=== PATIENT | male | born 1985 | race Caucasian/White ===

== ENCOUNTER 2020-01-24 14:28 | Emergency (ER) | payer SELFPAY ==
--- NOTE | ~2020-01-24 | CT_ITS ---
EXAMINATION: CT abdomen pelvis w con EXAM DATE: 01/24/2020 16:03 INDICATION: Left buttock pain, abscess. TECHNIQUE: Spiral CT of the abdomen and pelvis was performed following intravenous injection of 100 m L Omnipaque 350. Axial, coronal and sagittal images were reviewed. The dose-length product (DLP) fo r this examination was 1708.24 mGy-cm. The exposure was tailored according to patient size (auto mA exposure control), and iterative reconstruction (ASIR) was used as additional dose reduction techniqu e. There is no prior study for comparison. FINDINGS: There is left buttock sialoadenitis, with region of fluid density surrounded by induration measuring about 1 x 3 cm, appearance most consistent with early abscess which is not fully organized to form circumferential wall. There is a right adrenal gland lesion statistically most likely adenoma measuring 1.5 cm. The liver, spleen, adrenal glands and pancreas are otherwise unremarkable. The g allbladder is contracted but otherwise unremarkable. Portal and splenic veins are patent. Kidneys e nhance symmetrically. There is no hydronephrosis. The prostate is unremarkable. The bladder is un remarkable. There is no retroperitoneal or pelvic lymphadenopathy. There is mild scattered arterio sclerotic disease. The appendix is normal. The stomach and small bowel are unremarkable. There is expected amount of c olonic stool. No free intraperitoneal gas. The heart is normal in size. There are no pericardial or pleural effusions. The lung bases are unremarkable. The bones are unremarkable. IMPRESSION: 1. Left buttock cheek cellulitis, phlegmon and early abscess. Reviewed, dictated and finalized at location A.
[2020-01-24 14:43] VITALS: BP 133/73; PULSE 74; RESP 13; TEMP 36.4; O2SAT 100
[2020-01-24 15:22] LABS: Hematocrit 50.3 % (40.0-54.0); Hemoglobin 16.8 g/dL (14.0-18.0); Mean Corpuscular HGB Conc 33.4 g/dL (32.0-36.0); Mean Corpuscular Volume 83.7 fL (78.0-102.0); Mean Platelet Volume 10.9 fl (8.7-11.0); Platelet Count Result 196 K/mm3 (150-420); Red Blood Count 6.01 M/mm3 (4.70-6.10); Red Cell Distribution Width 14.6 % (11.6-14.4)
--- NOTE | 2020-01-24 15:27 | ED.SKABFB ---
HPI - Skin/Abscess/Foreign Bdy General Chief complaint: Skin/Abscess/Foreign Body Stated complaint: large bumps on left buttocks Time Seen by Provider: 01/24/20 15:05 Source: patient Mode of arrival: ambulatory Limitations: no limitations History of Present Illness HPI narrative: Jameson is a 34-year-old male patient. He presents ambulatory to the emergency room. He is pain and swelling to the left gluteal area. He has had an abscess in this area in the past and had incision and drainage. It appears he has a deep ischial rectal/ perirectal abscess to this area. This area is very tender. He had fever up to 102.4? F yesterday. Today his temperature in the emergency room his 97.6? F. . complaint: other (Jameson has redness and swelling to the left perirectal area it appears he has a deep ischio- rectal abscess.) Onset (ago): day(s) ( Two days) Location: buttocks Severity: severe Severity scale (1-10): 9 Quality: sharp Pain Consistency: constant Relieving factors: none Exacerbating factors: palpation and movement Context: other ( See HPI narrative) Associated symptoms: fever Treatments prior to arrival: none Related Data Home Medications Medication Instructions Recorded Confirmed No Home Medications 01/24/20 01/24/20 Allergies Allergy/AdvReac Type Severity Reaction Status Date / Time No Known Allergies Allergy Verified 01/24/20 14:42 Review of Systems Review of Systems: All systems reviewed & are unremarkable except as noted in HPI and below Constitutional: Constitutional: Reports as per HPI, Reports no additional constitutional complaints, Denies chills and Reports fever(s) Eyes: Eyes: Reports as per HPI, Reports no additional eye complaints and Denies change in vision ENT: Reports system reviewed and no additional complaints, except as documented, Denies vertigo, Denies dizziness and Denies sore throat Cardiovascular: Cardiovascular: Reports as per HPI, Reports no additional cardiovascular complaints, Denies chest pain and Denies radiating jaw, neck or arm pain Respiratory: Respiratory: Reports as per HPI, Reports no additional respiratory complaints, Denies cough and Denies dyspnea Gastrointestinal: Gastrointestinal: Reports as per HPI, Reports no additional gastrointestinal complaints, Denies abdominal pain, Denies diarrhea, Denies nausea and Denies vomiting Genitourinary: Genitourinary: Reports no additional male genitourinary complaints, Denies hematuria and Denies dysuria Musculoskeletal: Musculoskeletal: Reports no additional musculoskeletal complaints and Denies back pain Integumentary/Breasts: Skin/Breast: Reports system reviewed and no additional complaints, except as docu and Reports erythema Comments: swelling and redness to the left gluteal area / perirectal area Neurologic: Reports system reviewed and no additional complaints, except as documented, Denies vertigo, Denies syncope, Denies focal weakness, Denies numbness and Denies weakness Psychiatric: Psychiatric: Reports no additional psychiatric complaints, Reports as per HPI, Denies anxiety and Denies depression Hematologic/Lymphatic: Hematologic/Lymphatic: Reports no additional hematologic/lymphatic complaints, Denies easy bleeding and Denies easy bruising Allergic/Immunologic: Allergic/Immunologic: Reports no additional allergic/immunologic complaints [facility] Past Medical History Medical History (Updated 01/24/20 @ 21:05 by Alex Hayes MD) Forearm fracture Perirectal abscess Radius fracture Social History Social History (Updated 01/24/20 @ 15:38 by Alex Hayes MD) Smoking packs per day: 1.5 Smoking cigarettes per day: 30.0 Years smoked: 16 Smoking pack-years: 24.00 Smoking status: Current every day smoker Substance use: never Exam Const: General: no acute distress ( moderate distress); No diaphoretic Nutritional Appearance: well nourished Limitations: No no limitations HENMT: Ears: TM's
[2020-01-24 15:28] LABS: White Blood Count 22.2 K/mm3 (4.8-10.8)
[2020-01-24 15:40] LABS: Alanine Aminotransferase 35 U/L (16-63); Albumin Level 3.3 g/dL (3.4-5.0); Alkaline Phosphatase 92 U/L (46-116); Anion Gap 15.1 mmol/L (7-16); Aspartate Amino Transferase 30 U/L (15-37); Bilirubin,Total 0.9 mg/dL (0.00-1.00); Blood Urea Nitrogen 11 mg/dL (7-18); Calcium 8.7 mg/dL (8.5-10.1); Carbon Dioxide 25 mmol/L (21-32); Chloride 105 mmol/L (98-108); Estimated CRCL calculation 114 ml/min; Estimated Glomerular Filt Rate > 60; Glucose 93 mg/dL (70-99); Osmolality Calculated 291 mOsm/kg (285-295); Potassium 4.1 mmol/L (3.5-5.1); Sodium 141 mmol/L (136-145); Total Protein 7.1 g/dL (6.4-8.2)
--- NOTE | 2020-01-24 15:44 | PC.NURSE ---
PT STATED HE IS GOING OUTSIDE WHILE WAITING FOR HIS CT SCAN. WHEN PT RETURNED HE STATED HE IS GOING DOWN TO THE Phase III DevelopmentING MACHINES. RN REQUESTED THAT PT RETURN TO ROOM FOR TREATMENT.
[2020-01-24 15:49] LABS: Total Cells Counted 100
[2020-01-24 15:50] LABS: Band Neutrophils Percent 0 % (0-6); Basophils Percent Manual 0 % (0-1); Eosinophils Absolute Manual 0.22 K/mm3 (0.02-0.5); Eosinophils Percent Manual 1 % (1-6); Lymphocytes Absolute Manual 2.44 K/mm3 (1.1-4.5); Lymphocytes Percent Manual 11 % (18-44); Monocytes Absolute Manual 1.11 K/mm3 (0.1-0.90); Monocytes Percent Manual 5 % (3-9); Neutrophils Absolute Manual 18.42 K/mm3 (1.3-6.7); Neutrophils Percent Manual 83 % (46-73); Platelet Estimate Adequate (Adequate)
--- NOTE | 2020-01-24 15:52 | PC.NURSE ---
PT TAKEN TO RADIOLOGY FOR CT SCAN. PT REQUESTED TO AMBULATE
[2020-01-24 15:56] LABS: Lactic Acid 1.3 mmol/L (0.4-2.0)
[2020-01-24 17:29] LABS: Erythrocyte Sedimentation Rate 24 mm/hr (0-15)
--- NOTE | 2020-01-24 18:04 | PC.NURSE ---
ERP REQUESTING GENERAL SURGERY CONSULT. ANTONIO MARINOGARMENT SEWING MACHINE OPERATOR AT [facility] CONTACTED WHO GAVE RN THE EXCHANGE PHONE NUMBER FOR THE NITRIC ACID CONCENTRATOR OPERATOR DR JOHN DAS. EXCHANGE CONTACTED. AWAITING CALL BACK.
--- NOTE | 2020-01-24 18:11 | PC.NURSE ---
DR. LOPEZ CONTACTED ED AT THIS TIME. CALL TRANSFERRED TO ERP
--- NOTE | 2020-01-24 19:08 | PC.NURSE ---
BRIANNA Marcano accepting for Dr. Lynn physician at [facility]. Awaiting bed placement at this time.
--- NOTE | 2020-01-24 19:48 | PC.NURSE ---
TELEPHONE REPORT PROVIDED TO ZAIN CORTEZ. PT TO BE TAKEN UP TO ROOM 208 ER HOLD WHILE WAITING FOR ROOM AT [facility]
--- NOTE | 2020-01-24 19:52 | PC.NURSE ---
REPORT PROVIDED TO NANCY CORTEZ, ZAIN RN UNAVAILABLE
--- NOTE | 2020-01-24 20:00 | PC.NURSE ---
Patient ambulated to room 208. A&Ox3. VS. Resting in bed with warm blankets.
[2020-01-24 20:05] VITALS: BP 137/64; PULSE 90; RESP 20; TEMP 37.2; O2SAT 99
--- NOTE | 2020-01-24 20:20 | PC.NURSE ---
Regional Climate Change Analyst notified bed available at [facility] room #348. Report called to Corrine.
--- NOTE | 2020-01-24 21:02 | PC.NURSE ---
Patient transported off of floor via stretcher. [place] [facility]. To [facility] #348
== END 2020-01-24 21:05 | disposition short-term general hospital (02) ==
PROVIDERS: Emergency Provider Surgery
DX: L03.317 Cellulitis of buttock (principal); L02.31 Cutaneous abscess of buttock
CPT/HCPCS: 36415; 74177; 80053; 83605; 85025; 85652; 96365; 96367; 96375; 99285; A9270; J0696; J1885; J3370; Q9965

== ENCOUNTER 2020-01-24 21:45 | Inpatient (IN) | payer SELFPAY ==
[2020-01-24 22:00] VITALS: BP 143/69; PULSE 88; RESP 16; TEMP 37.1; O2SAT 98
--- NOTE | 2020-01-24 22:08 | ADMGEN ---
This patient, Jameson Tom, was admitted to Medical Room 348-. Patient/family oriented to hospital policies and general routines including ID bracelet, bed and alarms, visiting hours, pain management, procedures, bathroom and other care routines, personal items, smoking policy, room service/diet, and visiting hours. Valuables list has been completed. Information on how to activate the Rapid Response Team has been discussed. Patient/Family are encouraged to report perceived risks to care and to ask questions if they do not understand what they are told or what they should do.
[2020-01-24 22:18] VITALS: BMI 36.1
[2020-01-25] VITALS (13 sets, daily range): BP systolic 108–135; BP diastolic 50–73; PULSE 71–88; RESP 14–20; TEMP 36.2–37.9; O2SAT 90–99
[2020-01-25] MEDS: NICOTINE (*PBKC) 21 MG PATCH 1 PATCH TRANSDERM (00:14)
[2020-01-25] MEDS: DEXTROSE 5%/0.45% SOD CHL 1,000 ML 100 ML IV CONT (00:30)
[2020-01-25] MEDS: ACETAMINOPHEN 325 MG TABLET 650 MG PO (04:51)
[2020-01-25 05:40] LABS: Basophils Absolute Auto 0.1 K/mm3 (0.0-0.1); Basophils Percent Auto 0.3 % (0.2-1.2); Eosinophils Absolute Auto 0.2 K/mm3 (0-0.3); Eosinophils Percent Auto 0.9 % (0-4.4); Hematocrit 49.7 % (42.0-52.0); Hemoglobin 16.2 g/dL (14.0-18.0); Immature Granulocyte Absolute 0.12 K/mm3 (0.00-0.031); Immature Granulocyte Percent A 0.7 % (0-0.5); Lymphocytes Absolute Auto 2.12 K/mm3 (0.9-3.2); Lymphocytes Percent Auto 11.5 % (18.3-44.2); Mean Corpuscular HGB Conc 32.6 g/dl (32-36); Mean Corpuscular Hemoglobin 27.4 pg (26-34); Mean Platelet Volume 11.1 fl (7.4-10.4); Monocytes Absolute Auto 1.9 K/mm3 (0.1-0.6); Monocytes Percent Auto 10.3 % (2.6-8.5); Neutrophils Percent Auto 76.3 % (45.5-73.1); Platelet Count Result 227 k/mm3 (150-375); Red Blood Count 5.92 M/mm3 (4.6-6.20); Red Cell Distribution Width 14.7 % (11.5-14.5); White Blood Count 18.4 K/mm3 (4.5-10.0)
[2020-01-25 05:58] LABS: Blood Urea Nitrogen 9 mg/dL (9-20); Calcium 8.5 mg/dL (8.4-10.2); Carbon Dioxide 26 mmol/L (22-30); Chloride 105 mmol/L (98-107); Estimated CRCL calculation 127 ml/min; Estimated Glomerular Filt Rate > 60; Glucose 88 mg/dL (75-110); Potassium 3.7 mmol/L (3.4-5.0); Sodium 135 mmol/L (137-145)
--- NOTE | 2020-01-25 08:17 | PM.CNGS ---
Assessment and Plan Assessment and plan (1) Abscess of skin or subcutaneous tissue: Qualifiers: Site of cutaneous abscess: buttock Qualified Code(s): L02.31 - Cutaneous abscess of buttock Code(s): L02.91 - Cutaneous abscess, unspecified Status: Acute Assessment and Plan: Patient has a large left buttock/perirectal abscess that is extremely tender on exam. I have reviewed the CT and discussed treatment options with patient. I have recommended urgent I&D of left buttock abscess to be done under anesthesia in the OR. Discussed procedure, risks, benefits, and alternatives. Questions answered. He has already been started on IV antibiotics. (2) Cellulitis: Qualifiers: Site of cellulitis: buttock Qualified Code(s): L03.317 - Cellulitis of buttock Code(s): L03.90 - Cellulitis, unspecified Status: Acute History of Present Illness Consult details Consult date: 01/25/20 Reason for consult: other (left buttock abscess) Narrative: 34 yo man presented to the ED in [place] with left buttock pain and swelling. This began about 3-4 days ago. He was also experiencing fevers. He had one episode like this in the past but not this bad. He had a CT and labs done in [place]. He was then transferred to [place] for treatment. Review of Systems Review of Systems: All systems reviewed & are unremarkable except as noted in HPI and below Eyes: Eyes: Denies change in vision ENT: Denies hearing loss, Denies neck pain and Denies sore throat Cardiovascular: Cardiovascular: Denies chest pain and Denies dyspnea Respiratory: Respiratory: Denies cough, Denies dyspnea and Denies wheezing Genitourinary: Genitourinary: Denies hematuria and Denies dysuria Musculoskeletal: Musculoskeletal: Denies arthralgias, Denies joint swelling and Denies neck pain Integumentary/Breasts: Skin/Breast: Reports furuncle Allergic/Immunologic: Allergic/Immunologic: Denies wheezing PMFSH Past Medical History Medical History Forearm fracture Perirectal abscess Radius fracture Family History Family History Father Cancer Acute myocardial infarction Social History Social History Smoking packs per day: 1.5 Smoking cigarettes per day: 30.0 Years smoked: 16 Smoking pack-years: 24.00 Smoking status: Current every day smoker Tobacco type: cigarettes Second hand tobacco smoke exposure: Yes Alcohol intake: current Drinks per week: 1 Substance use: former Substance use type: marijuana Gender identity (if verbalized by the patient): Male Spiritual care concerns: No Agree to blood products: No Meds Home Medications and Allergies Home Medications Medication Instructions Recorded Confirmed Type No Home Medications 01/24/20 01/24/20 History Allergies Allergy/AdvReac Type Severity Reaction Status Date / Time No Known Allergies Allergy Verified 01/25/20 08:16 Vital Signs Vital Signs - 24 hr 01/24/20 22:00 01/25/20 04:46 01/25/20 04:51 Temperature 37.1 C 37.9 C H 37.9 C H Pulse Rate 88 88 Respiratory Rate 16 16 Blood Pressure 143/69 H 135/50 L Pulse Oximetry 98 99 01/25/20 05:51 Temperature 36.9 C Pulse Rate Respiratory Rate Blood Pressure Pulse Oximetry Exam Const: General: alert; No acute distress Orientation/consciousness: patient oriented x3 Limitations: no limitations HENMT: Head: normocephalic and atraumatic Ears: hearing grossly normal bilaterally General nose exam: Normal external nose present and Normal nares present Mouth: Yes Normal oral and palatal mucosa present and Yes moist mucous membranes Eyes: General: appearance normal, both eyes and all related structures Conjunctivae: conjunctivae normal Sclera: sclerae normal Pupils: Equal, round and react
--- NOTE | 2020-01-25 08:25 | WPDANESEPPF ---
Anes - Initial Pre Proc Eval Procedure: Operation Date: 01/25/20 08:30 Proposed Procedures p Incision and Drainage Left Buttock Abscess - Ángel Teague DO Date/Time: 01/25/20 08:25 Surgeon: Umu Rodriguez DO Pre Op Diagnosis: sepsis buttock cellulitis Patient Data Age: 34 Gender: M Height: 6 ft 1 in Weight: 124.2 kg Last Vital Signs Temp 97.8 F 01/25/20 07:55 Pulse 74 01/25/20 07:55 Resp 20 01/25/20 07:55 BP 130/69 01/25/20 07:55 Pulse Ox 97 01/25/20 07:55 Allergies Allergy/AdvReac Type Severity Reaction Status Date / Time No Known Allergies Allergy Verified 01/25/20 08:16 Home Medications Medication Instructions Recorded Confirmed Type No Home Medications 01/24/20 01/24/20 History Laboratory Tests 01/25/20 01/25/20 05:11 05:11 WBC 18.4 K/mm3 H K/mm3 (4.5-10.0) RBC 5.92 M/mm3 M/mm3 (4.6-6.20) Hgb 16.2 g/dL g/dL (14.0-18.0) Hct 49.7 % % (42.0-52.0) MCV 84.0 fl fl (80-100) MCH 27.4 pg pg (26-34) MCHC 32.6 g/dl g/dl (32-36) RDW 14.7 % H % (11.5-14.5) Plt Count 227 k/mm3 k/mm3 (150-375) MPV 11.1 fl H fl (7.4-10.4) Immature Gran % (Auto) 0.7 % H % (0-0.5) Neut % (Auto) 76.3 % H % (45.5-73.1) Lymph % (Auto) 11.5 % L % (18.3-44.2) [place] % (Auto) 10.3 % H % (2.6-8.5) Eos % (Auto) 0.9 % % (0-4.4) Baso % (Auto) 0.3 % % (0.2-1.2) Lymph # (Auto) 2.12 K/mm3 K/mm3 (0.9-3.2) [place] # (Auto) 1.9 K/mm3 H K/mm3 (0.1-0.6) Eos # (Auto) 0.2 K/mm3 K/mm3 (0-0.3) Baso # (Auto) 0.1 K/mm3 K/mm3 (0.0-0.1) Abs Immat Gran (auto) 0.12 K/mm3 H K/mm3 (0.00-0.031) Absolute Neuts (auto) 14.0 K/mm3 H K/mm3 (1.3-6.7) Absolute Nucleated RBC 0.0 K/mm3 K/mm3 (0.0-0.012) Nucleated RBC % 0.0 % % (0.0-0.2) Sodium 135 mmol/L L mmol/L (137-145) Potassium 3.7 mmol/L mmol/L (3.4-5.0) Chloride 105 mmol/L mmol/L (98-107) Carbon Dioxide 26 mmol/L mmol/L (22-30) BUN 9 mg/dL mg/dL (9-20) Creatinine 1.00 mg/dL mg/dL (0.7-1.3) Estim Creat Clear Calc 127 ml/min ml/min Estimated GFR > 60 (59 - ) Glucose 88 mg/dL mg/dL (75-110) Calcium 8.5 mg/dL mg/dL (8.4-10.2) Patient hx anesthesia problems: none Family hx anesthesia problems: none PMFSH Past Medical History Medical History Forearm fracture Perirectal abscess Radius fracture Family History Family History Father Cancer Acute myocardial infarction Social History Social History Smoking packs per day: 1.5 Smoking cigarettes per day: 30.0 Years smoked: 16 Smoking pack-years: 24.00 Smoking status: Current every day smoker Tobacco type: cigarettes Second hand tobacco smoke exposure: Yes Alcohol intake: current Drinks per week: 1 Substance use: former Substance use type: marijuana Gender identity (if verbalized by the patient): Male Spiritual care concerns: No Agree to blood products: No Anes - Eval Final PreProcedure Day of Procedure 01/25/20 08:25 Patient weight: obese Heart: regular rate and rhythm Lungs: clear to auscultation Airway: Mallampati scale class III Neurological: alert and oriented Last oral intake: >/= 8 hours ASA classification: II Emergent: no Anesthetic plan: proceed Anesthesia type and monitoring: general LMA and standard monitoring Informed Consent: The patient's anesthetic plan and its attendant risks and benefits were discussed with the patient/family/POA. Questions were solicited and answers provided to the satisfaction of the patient/family/POA.
[2020-01-25] MEDS: LACTATED RINGERS 1,000 ML 30 ML IV CONT (08:30)
[2020-01-25] MEDS: BUPIVACAINE/EPINEPHRINE 0.5% 30 ML VIAL 10 ML INFILTRATE (09:06)
[2020-01-25] MEDS: IBUPROFEN 600 MG TABLET PO (11:14)
--- NOTE | 2020-01-25 12:41 | PM.PROC ---
Procedure Note - Detailed Date of procedure: 01/25/20 Pre-op diagnosis: sepsis buttock cellulitis Post-op diagnosis: other (Perirectal abscess) Procedure performed: Incision and drainage of left perirectal abscess Description of procedure: Procedure as well as risks, benefits, and alternatives were discussed with the patient. Written consent was obtained and placed in chart prior to procedure. Patient was brought back to surgical suite. He was placed supine on operating table. Time-out was done to confirm patient and procedure. He was then placed under general anesthetic with LMA by the anesthesia department. He was then re[facility] and his perirectal and buttock region was prepped and draped in sterile fashion using Betadine prep. 0.5% bupivacaine with epinephrine was infiltrated over locally over the area of fluctuance in the left perirectal region. A 4 cm incision was then made over the area of fluctuance using a 15 blade scalpel. Cultures were taken for aerobic and anaerobic culture and sensitivity. The cavity was then thoroughly inspected and purulent fluid was drained. Loculations were broken up. The abscess cavity was then irrigated with sterile saline. No further purulence fluid was noted. The wound was then packed with 1 in iodoform gauze. 4 x 4 gauze, ABD pad, and mesh underwear were then applied. The patient was then awakened from anesthesia and transferred to recovery. Anesthesia: GLMA and local (0.5% bupivicaine with epi) Surgeon: Ángel Teague DO Estimated blood loss (mL): 5 Packing: Yes (1 iodoform gauze) Complications: No immediate complications Condition: stable Disposition: floor Findings: This is a 34-year-old man who presented with swelling, redness, and drainage from his left perirectal region. He had noticed increasing swelling over the past 2-3 days. He was also experiencing fevers. He presented to the emergency department in [place] and was then transferred to [facility] for further treatment. He had a CT of his abdomen and pelvis done in [place] which showed evidence of a developing abscess in the left buttock region. He also had an elevated white blood count. He was started on broad-spectrum IV antibiotics and decision was made to proceed with incision and drainage of left perirectal abscess. Incision and drainage of left perirectal abscess was performed. Patient had a large area of fluctuance along the left lateral perirectal region. There were 2 small openings with purulence drainage along this area of fluctuance. An incision was made over this area to adequately drain out this fluid. The abscess cavity measured about 6 cm and was along the left lateral perirectal region. An incision was made long enough to adequately drain the entire abscess. Cultures were taken. After irrigating out the abscess cavity, it was then packed with 1 in iodoform gauze.
--- NOTE | 2020-01-25 16:49 | PM.IMHP ---
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 The ER physician contacted the surgeon the patient was transferred to the [facility] any had I and D done on 01/23, this morning patient is feeling better pain is still persisting but denies any fever or chills he was started on imipenem and vancomycin, his and mother are present in the room Review of Systems Review of Systems: All systems reviewed & are unremarkable except as noted in HPI and below PMFSH Past Medical History Medical History Forearm fracture Perirectal abscess Radius fracture Family History Family History Father Cancer Acute myocardial infarction Social History Social History Smoking packs per day: 1.5 Smoking cigarettes per day: 30.0 Years smoked: 16 Smoking pack-years: 24.00 Smoking status: Current every day smoker Tobacco type: cigarettes Second hand tobacco smoke exposure: Yes Alcohol intake: current Drinks per week: 1 Substance use: former Substance use type: marijuana Gender identity (if verbalized by the patient): Male Spiritual care concerns: No Agree to blood products: No Meds Home Medications and Allergies Home Medications Medication Instructions Recorded Confirmed Type No Home Medications 01/24/20 01/24/20 History Allergies Allergy/AdvReac Type Severity Reaction Status Date / Time No Known Allergies Allergy Verified 01/25/20 08:16 Vital Signs Vital Signs - 24 hr 01/24/20 22:00 01/25/20 04:46 01/25/20 04:51 Temperature 98.8 F 100.2 F H 100.2 F H Pulse Rate 88 88 Respiratory Rate 16 16 Blood Pressure 143/69 H 135/50 L Pulse Oximetry 98 99 01/25/20 05:51 01/25/20 07:55 01/25/20 09:02 Temperature 98.4 F 97.8 F 97.5 F L Pulse Rate 74 81 Respiratory Rate 20 18 Blood Pressure 130/69 111/64 Pulse Oximetry 97 93 01/25/20 09:15 01/25/20 09:30 01/25/20 09:45 Temperature Pulse Rate 78 83 79 Respiratory Rate 18 19 16 Blood Pressure 114/56 L 127/68 125/68 Pulse Oximetry 94 94 92 01/25/20 10:05 01/25/20 10:20 01/25/20 10:50 Temperature 98.1 F 97.6 F 98.1 F Pulse Rate 80 82 81 Respiratory Rate 16 16 16 Blood Pressure 119/65 124/73 130/67 Pulse Oximetry 91 90 94 01/25/20 12:11 01/25/20 16:06 Temperature 97.2 F L 97.5 F L Pulse Rate 71 82 Respiratory Rate 14 18 Blood Pressure 108/64 130/62 Pulse Oximetry 92 95 Exam Const: General: comfortable and no acute distress HENMT: General nose exam: Normal nares present Mouth: Yes moist mucous membranes Eyes: General: appearance normal, both eyes and all related structures Sclera: sclerae normal Neck: Neck: supple Resp: Effort & Inspection: normal respiratory effort Auscultation: clear to auscultation bilaterally Cardio: Rate: regular rate Rhythm: regular rhythm GI: GI Palp: Yes Soft to palpation Skin: General skin exam: normal color and no rashes or lesions noted Neuro: Speech: normal speech Sensory Exam: normal sensation Extrem: General: normal to inspection Psych: Affect: Anxious affect present H&P: Results Labs Labs: Short CBC 01/25/20 Range/Units 05:11 WBC 18.4 H (4.5-10.0) K/mm3 Hgb 16.2 (14.0-18.0) g/dL Hct 49.7 (42.0-52.0) % Plt Count 227 (150-375) k/mm3 BMP 01/25/20 05:11 Sodium 135 L Potassium 3.7 Chloride 105 Carbon Dioxide 26 BUN 9 Creatinine 1.00 Glucose 88 Calcium 8.5 Assessment and Plan Assessment and plan (1) Cellulitis:
--- NOTE | 2020-01-25 18:32 | PM.DS ---
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 The ER physician contacted the surgeon the patient was transferred to the [facility] any had I and D done on 01/23, this morning patient is feeling better pain is still persisting but denies any fever or chills he was started on imipenem and vancomycin, his and mother are present in the room (2) Abscess of skin or subcutaneous tissue: Qualifiers: Site of cutaneous abscess: buttock Qualified Code(s): L02.31 - Cutaneous abscess of buttock Code(s): L02.91 - Cutaneous abscess, unspecified Status: Inactive Assessment and Plan: Plan is above DS: Summary Hospital Course Reason for hospitalization: Jameson Tom is a 34 year old male [employer] he has had history of abscess and I and D patient initially went to the [facility] and was found to an abscess in the left buttock CT scan of the pelvis showed Left buttock cheek cellulitis, phlegmon and early abscess. 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 The ER physician contacted the surgeon the patient was transferred to the [facility] any had I and D done on 01/23, this morning patient is feeling better pain is still persisting but denies any fever or chills he was started on imipenem and vancomycin, his and mother are present in the room. Patient was seen by his surgeon patient is clinically stable and can be discharged home today on oral antibiotic, his and mother will help him with dressing changes Status at Discharge Functional status at discharge: independent ambulation Overall status at discharge: patient is back to baseline Time Spent with Patient Time attestation: Total time spent providing and/or coordinating discharge services: Patient was seen and examined at the time of the discharge Condition at discharge is stable Code status: Full code. Time spent preparing discharge summary, discharge medications, discussing discharge planning with welfare case worker and patient is 35 minutes. Time spent: Greater than 30 minutes Exam Const: General: comfortable and no acute distress HENMT: General nose exam: Normal nares present Mouth: Yes moist mucous membranes Eyes: General: appearance normal, both eyes and all related structures Sclera: sclerae normal Neck: Neck: supple Resp: Effort & Inspection: normal respiratory effort Auscultation: clear to auscultation bilaterally Cardio: Rate: regular rate Rhythm: regular rhythm Skin: General skin exam: normal color and no rashes or lesions noted Neuro: Speech: normal speech Sensory Exam: normal sensation Extrem: General: normal to inspection Psych: Affect: Anxious affect present DS: Data Data Completed and Pending Labs on day of discharge: Labs from last 24 hours 01/25/20 01/25/20 05:11
== END 2020-01-25 19:25 | disposition home or self-care (01) | DRG 951 ==
PROVIDERS: Physician Assistant; Surgery; Admitting Provider Internal Medicine; Referring Provider Internal Medicine; Visit Provider Family Medicine
PROC: 0D9P0ZZ Drainage of Rectum, Open Approach (ICD-10-PCS; CPT 46040; principal; 2020-01-25 08:30)
DX: L02.31 Cutaneous abscess of buttock (principal); K61.1 Rectal abscess; L03.317 Cellulitis of buttock; F17.210 Nicotine dependence, cigarettes, uncomplicated; E66.9 Obesity, unspecified; Z68.36 Body mass index [BMI] 36.0-36.9, adult
CPT/HCPCS: 36415; 80048; 85025; 87070; 87075; 87076; 87205; A9270; J0743; J1170; J2250; J2405; J2704; J3010; J3370; J7120

== ENCOUNTER 2021-08-01 06:16 | Emergency (ER) | payer BC, SELFPAY ==
--- NOTE | ~2021-08-01 | XR_ITS ---
EXAMINATION: XR lumbar spine 2-3V DATE: 08/01/2021 07:11 INDICATION: Back pain after jumping out of a truck TECHNIQUE: Anteroposterior and lateral views of the lumbar spine, and cone-down lateral view of the l umbosacral junction were obtained. COMPARISON: None. FINDINGS: Chronic straightening of the normal lumbar lordosis. Limited is otherwise normal. Vertebral body heig hts are normal. Mild disc height loss with mild degenerative endplate changes at L3-L4 and L4-L5 and at T10-T11 through T12-L1. Lumbar facet and bilateral sacroiliac joints are normal. IMPRESSION: 1. Mild lower lumbar lower thoracic spondylosis. No evident acute osseous abnormality. Reviewed, dictated and finalized at location A. IMPRESSION: 1. Mild lower lumbar lower thoracic spondylosis. No evident acute osseous abnor mality.
[2021-08-01 06:20] VITALS: BP 163/86; PULSE 77; RESP 16; TEMP 36.2; O2SAT 97
--- NOTE | 2021-08-01 06:39 | ED.BACK ---
HPI - Back Pain/Injury General Chief Complaint: Back Pain/Injury <Bharath Navarro MD - Last Filed: 08/01/21 06:55> Stated Complaint: Back pain <Bharath Navarro MD - Last Filed: 08/01/21 06:55> Time Seen by Provider: 08/01/21 06:39 <Bharath Navarro MD - Last Filed: 08/01/21 06:55> Source: patient <Bharath Navarro MD - Last Filed: 08/01/21 06:55> Mode of arrival: ambulatory <Bharath Navarro MD - Last Filed: 08/01/21 06:55> Limitations: no limitations <Bharath Navarro MD - Last Filed: 08/01/21 06:55> History of Present Illness HPI Narrative: 36-year-old man with a history of low back pain comes in today complaining of worsening low back pain that started 5 days ago after he jumped out his truck trailer. States he has pain in his back with extension of his right knee but he denies urine symptoms, numbness, tingling, weakness or prior back surgery. He has been taking [id number] anti-inflammatories. <Bharath Navarro MD - Last Filed: 08/01/21 06:55> MD elicited complaint: back injury <Bharath Navarro MD - Last Filed: 08/01/21 06:55> Pertinent past history: prior back pain and recent trauma <Bharath Navarro MD - Last Filed: 08/01/21 06:55> Onset (ago): day(s) (5) <Bharath Navarro MD - Last Filed: 08/01/21 06:55> Timing: progressively worsening <Bharath Navarro MD - Last Filed: 08/01/21 06:55> Severity: severe <Bharath Navarro MD - Last Filed: 08/01/21 06:55> Similar Symptoms Previously: Yes <Bharath Navarro MD - Last Filed: 08/01/21 06:55> Quality: sharp and aching <Bharath Navarro MD - Last Filed: 08/01/21 06:55> Location: lumbar spine <Bharath Navarro MD - Last Filed: 08/01/21 06:55> Radiation: none <Bharath Navarro MD - Last Filed: 08/01/21 06:55> Exacerbating factors: movement and walking <Bharath Navarro MD - Last Filed: 08/01/21 06:55> Relieving factors: none <Bharath Navarro MD - Last Filed: 08/01/21 06:55> Context: fall <Bharath Navarro MD - Last Filed: 08/01/21 06:55> Associated symptoms: denies other symptoms <Bharath Navarro MD - Last Filed: 08/01/21 06:55> Treatments prior to arrival: NSAIDS <Bharath Navarro MD - Last Filed: 08/01/21 06:55> Work related injury: Yes <Bharath Navarro MD - Last Filed: 08/01/21 06:55> Related Data Allergies/Adverse Reactions: Allergies Allergy/AdvReac Type Severity Reaction Status Date / Time No Known Allergies Allergy Verified 01/25/20 08:16 <Bharath Navarro MD - Last Filed: 08/01/21 06:55> Review of Systems Constitutional: Constitutional: Denies chills and Denies fever(s) <Bharath Navarro MD - Last Filed: 08/01/21 06:55> ENT: Denies nasal congestion and Denies sore throat <Bharath Navarro MD - Last Filed: 08/01/21 06:55> Cardiovascular: Cardiovascular: Denies chest pain <Bharath Navarro MD - Last Filed: 08/01/21 06:55> Respiratory: Respiratory: Denies cough and Denies dyspnea <Bharath Navarro MD - Last Filed: 08/01/21 06:55> Gastrointestinal: Gastrointestinal: Denies abdominal pain, Denies nausea and Denies vomiting <Bharath Navarro MD - Last Filed: 08/01/21 06:55> Genitourinary: Genitourinary: Denies dysuria and Denies urinary frequency <Bharath Navarro MD - Last Filed: 08/01/21 06:55> Musculoskeletal: Musculoskeletal: Reports back pain, Denies arthralgias and Denies joint swelling <Bharath Navarro MD - Last Filed: 08/01/21 06:55> Integumentary/Breasts: Skin/Breast: Denies pruritus, Denies erythema and Denies rash <Bharath Navarro MD - Last Filed: 08/01/21 06:55> Neurologic: Denies vertigo, Denies dizziness, Denies syncope, Denies focal weakness and Denies numbness <Bharath Navarro MD - Last Filed: 08/01/21 06:55> [facility] Past Medical History Medical History: Medical History (Updated 08/01/21 @ 06:51 by Bharath
[2021-08-01] MEDS: HYDROcodone/acetaminophen (*CRX) 5-325 MG TABLET 1 TAB PO (06:54)
[2021-08-01] MEDS: predniSONE 20 MG TABLET 40 MG PO (06:54)
[2021-08-01 08:13] VITALS: BP 150/85; PULSE 71; RESP 20; TEMP 36.2; O2SAT 97
== END 2021-08-01 08:17 | disposition home or self-care (01) ==
PROVIDERS: Emergency Provider Emergency Medicine
DX: S39.012A Strain of muscle, fascia and tendon of lower back, initial encounter (principal)
CPT/HCPCS: 72100; 99283; A9270; J7512

== ENCOUNTER 2022-11-24 14:40 | Emergency (ER) | payer OTHER, SELFPAY ==
--- NOTE | ~2022-11-24 | CT_ITS ---
EXAMINATION: CT brain wo con DATE: 11/24/2022 15:33 INDICATION: dizziness . TECHNIQUE: Computed tomography (CT) of the head was performed without intravenous contrast. The mA wa s adjusted according to patient size. Iterative reconstruction technique was employed. The dose-lengt h product was 681.00 mGy-cm. COMPARISON: 02/01/2018. FINDINGS: No acute intracranial hemorrhage or extra-axial fluid collection. No hydrocephalus, mass, or herniation. No acute ischemic infarct. Unremarkable dural venous sinus attenuation. No acute osseous abnormality. Mild left maxillary and middle ethmoid air cell mucosal thickening, the remaining aerated spaces are clear. Cystic collection in the posterior fossa, stable, without overt mass effect, likely representi ng a benign congenital or developmental entity, for example arachnoid cyst. IMPRESSION: No acute intracranial process. Reviewed, dictated and finalized at location K. AGE PROGRAM DIRECTOR
[2022-11-24 14:46] VITALS: BP 131/86; PULSE 81; RESP 16; TEMP 36.6; O2SAT 97
--- NOTE | 2022-11-24 14:47 | ED.GENADULT ---
HPI - General Adult General Chief complaint: Upper Respiratory Infection Stated complaint: chest pain/dizzy/headaches Time Seen by Provider: 11/24/22 14:46 History of Present Illness HPI narrative: 37-year-old male patient is here with complaints of experiencing dizziness and diaphoresis the the the nausea dry heaving and 1 episode of vomiting prior to arrival to the ER. 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 He did not fall down. He did have dry heaving initially and broke out in a cold sweat. Denies any associated shortness of breath or chest pain. He denies any pain in the neck or arms or jaw. He denies any pain in the shoulder blades. He did check his blood pressure and blood sugar at home which were both normal. Patient is a smoker and has a family history of diabetes mellitus. He takes no routine medications. He states that he gets the D.O. to physical every year and is in good health. Patient states that he is feeling better now. He has had some back pain [place] but is not taking any medication for the same. Up-to-date on COVID vaccination. Has had COVID in the past. Does complain about sinus congestion which is chronic with him on account of smoking. Related Data Allergies Allergy/AdvReac Type Severity Reaction Status Date / Time No Known Allergies Allergy Verified 11/24/22 14:50 Review of Systems Review of Systems: All systems reviewed & are unremarkable except as noted in HPI and below Constitutional: Constitutional: Denies chills, Denies fatigue, Denies fever(s) and Denies weakness Eyes: Eyes: Reports no additional eye complaints, Denies change in vision and Denies photophobia ENT: Reports as per HPI Cardiovascular: Cardiovascular: Reports no additional cardiovascular complaints, Denies chest pain, Denies rapid heart rate, Denies radiating jaw, neck or arm pain and Denies slow heart rate Respiratory: Respiratory: Denies chest congestion, Reports cough, Denies dyspnea and Denies wheezing Gastrointestinal: Gastrointestinal: Reports no additional gastrointestinal complaints, Reports nausea and Reports vomiting Genitourinary: Genitourinary: Reports no additional male genitourinary complaints Musculoskeletal: Musculoskeletal: Reports no additional musculoskeletal complaints Integumentary/Breasts: Skin/Breast: Reports system reviewed and no additional complaints, except as docu Neurologic: Reports system reviewed and no additional complaints, except as documented Psychiatric: Psychiatric: Reports no additional psychiatric complaints Endocrine: Endocrine: Reports no additional endocrine complaints Hematologic/Lymphatic: Hematologic/Lymphatic: Reports no additional hematologic/lymphatic complaints Allergic/Immunologic: Allergic/Immunologic: Reports no additional allergic/immunologic complaints PMFSH Past Medical History Medical History (Updated 11/24/22 @ 16:07 by Rhonda Toro MD) Forearm fracture Perirectal abscess Radius fracture Family History Family History Father Cancer Acute myocardial infarction Social History Social History Smoking packs per day: 1.5 Smoking cigarettes per day: 30.0 Years smoked: 16 Smoking pack-years: 24.00 Smoking status: Current every day smoker Tobacco type: cigarettes Second hand tobacco smoke exposure: Yes Alcohol intake: current Drinks per week: 1 Alcohol use details: denies alcohol use Substance use: former Substance use type: marijuana Gender identity (if verbalized by the patient): Male Spiritual care concerns: No Agree to blood products: No Exam Const: General: healthy appearing, no acute distress and alert Nutritional Appearance: well nourished Orientation/consciousness: patient oriented x3 Limitatio
--- NOTE | 2022-11-24 14:59 | ECG_ITS ---
Measurements Intervals [place] Rate: 78 P: 51 CT: 150 QRS: 81 QRSD: 101 T: 63 QT: 384 QTc: 440 Interpretive Statements SINUS RHYTHM INCOMPLETE RIGHT BUNDLE BRANCH BLOCK BORDERLINE ECG NO PREVIOUS ECG AVAILABLE FOR COMPARISON Electronically Signed On 11-24-2022 15:16:01 JUICE WEIGHER by Jayme Aviles D.O.
[2022-11-24] MEDS: ONDANSETRON HCL ODT 4 MG TABLET PO (15:21)
[2022-11-24 15:24] LABS: Basophils Absolute Auto 0.09 K/mm3 (0.00-0.10); Basophils Percent Auto 0.7 % (0.0-1.0); Eosinophils Absolute Auto 0.16 K/mm3 (0.02-0.50); Eosinophils Percent Auto 1.2 % (1.0-6.0); Hematocrit 51.8 % (40.0-54.0); Hemoglobin 17.7 g/dL (14.0-18.0); Immature Granulocyte Absolute 0.08 K/mm3 (0.00-0.00); Immature Granulocyte Percent A 0.6 % (0.0-0.0); Lymphocytes Absolute Auto 2.46 K/mm3 (1.10-4.50); Lymphocytes Percent Auto 18.9 % (18.0-42.0); Mean Corpuscular HGB Conc 34.2 g/dL (32.0-36.0); Mean Corpuscular Hemoglobin 29.2 pg (27.0-31.0); Mean Corpuscular Volume 85.3 fL (78.0-102.0); Mean Platelet Volume 10.8 fl (8.7-11.0); Monocytes Absolute Auto 0.93 K/mm3 (0.10-0.90); Monocytes Percent Auto 7.1 % (2.0-11.0); Neutrophils Absolute Auto 9.3 K/mm3 (1.7-7.2); Neutrophils Percent Auto 71.5 % (50.0-70.0); Platelet Count Result 218 K/mm3 (150-420); Red Blood Count 6.07 M/mm3 (4.70-6.10); Red Cell Distribution Width 14.1 % (11.6-14.4); White Blood Count 13.1 K/mm3 (4.8-10.8)
[2022-11-24 15:36] LABS: Influenza A QL RT-PCR Negative (Negative); Influenza B QL RT-PCR Negative (Negative); SARS-CoV-2 RNA PCR Negative (Negative)
[2022-11-24 15:39] LABS: Alanine Aminotransferase 41 U/L (16-63); Albumin Level 3.7 g/dL (3.4-5.0); Alkaline Phosphatase 92 U/L (46-116); Anion Gap 7 mmol/L (8-16); Aspartate Amino Transferase 20 U/L (15-37); Bilirubin,Total 0.4 mg/dL (0.00-1.00); Blood Urea Nitrogen 8 mg/dL (7-18); Calcium 8.4 mg/dL (8.5-10.1); Carbon Dioxide 28 mmol/L (21-32); Chloride 101 mmol/L (98-108); Estimated Glomerular Filt Rate > 60; Glucose 103 mg/dL (70-99); Osmolality Calculated 280 mOsm/kg (285-295); Potassium 3.5 mmol/L (3.5-5.1); Sodium 136 mmol/L (136-145); Total Protein 7.3 g/dL (6.4-8.2); Troponin I 5.6 ng/L (0.00-60.4)
[2022-11-24 15:41] LABS: RSV RNA, RT-PCR Negative (Negative)
[2022-11-24 16:12] VITALS: BP 133/82; PULSE 84; RESP 16; O2SAT 98
[2022-11-24 16:20] VITALS: BP 133/82; PULSE 84; RESP 16; TEMP 36.6; O2SAT 98
== END 2022-11-24 16:21 | disposition home or self-care (01) ==
PROVIDERS: Emergency Provider Emergency Medicine; PCP Physician Assistant
DX: R42 Dizziness and giddiness (principal); R11.2 Nausea with vomiting, unspecified; F17.210 Nicotine dependence, cigarettes, uncomplicated; Z20.822 Contact with and (suspected) exposure to COVID-19
CPT/HCPCS: 36415; 70450; 80053; 84484; 85025; 87637; 93005; 99284; A9270